=== PATIENT | male | born 1980 | race Caucasian/White ===

== ENCOUNTER 2016-07-22 09:37 | Emergency (ER) | payer OTHER, MEDICAID ==
[~2016-07-22] VITALS: Ht 190.5 cm; Wt 144.2 kg
[~2016-07-22 09:37] MED LIST: None at this time
[2016-07-22 09:41] VITALS: BP 160/84
[2016-07-22] MEDS ORDERED: HYDROcodone/APAP 5/325 TABLET ONE (10:25)
[2016-07-22] MEDS ORDERED: METHOCARBAMOL 750 MG TABLET ONE (10:25)
[2016-07-22] MEDS ORDERED: METHOCARBAMOL 750 MG TABLET PO ONE (10:30)
[2016-07-22] MEDS ORDERED: HYDROcodone/APAP 5/325 TABLET PO ONE (10:30)
== END 2016-07-22 11:30 | disposition home or self-care (01) ==
LOC: ED 10:23
DX: S13.4XXA Sprain of ligaments of cervical spine, initial encounter (principal); Z88.1 Allergy status to other antibiotic agents; Z88.8 Allergy status to other drugs, medicaments and biological substances; S39.012A Strain of muscle, fascia and tendon of lower back, initial encounter; V43.52XA Car driver injured in collision with other type car in traffic accident, initial encounter; Y93.89 Activity, other specified; Y99.8 Other external cause status; Y92.89 Other specified places as the place of occurrence of the external cause
CPT/HCPCS: 71020; 72050; 72072

== ENCOUNTER 2018-02-12 09:00 | Emergency (ER) | payer MEDICAID, OTHER ==
[~2018-02-12] VITALS: Ht 190.5 cm; Wt 164.8 kg
[2018-02-12 09:07] VITALS: BP 151/70
[2018-02-12] MEDS ORDERED: KETOROLAC 30 MG/1 ML IM ONE (09:30)
[2018-02-12] MEDS ORDERED: KETOROLAC 30 MG/1 ML ONE (09:31)
== END 2018-02-12 10:29 | disposition home or self-care (01) ==
LOC: ED 10:15
DX: S83.411A Sprain of medial collateral ligament of right knee, initial encounter (principal); X50.1XXA Overexertion from prolonged static or awkward postures, initial encounter; Y93.89 Activity, other specified; Y92.009 Unspecified place in unspecified non-institutional (private) residence as the place of occurrence of the external cause; Y99.8 Other external cause status
CPT/HCPCS: 73564; 96372; 99283; J1885

== ENCOUNTER 2018-04-24 21:36 | Emergency (ER) | payer MEDICAID ==
[~2018-04-24] VITALS: Ht 193 cm; Wt 168.3 kg
--- NOTE | 2018-04-24 22:03 | NUR ---
PT ARRIVED WITH C/O SOB, COUGH X 1.5 DAYS. PT STATED CHEST AND BACK PAIN WITH COUGHING, +N/V X 2 EPISODES YESTERDAY. MONITORS APPLIED, SIDERAILS UP X2,PROVIDED PT WITH WARM BLANKET, CALL LIGHT WITHIN REACH, FAMILY AT BEDSIDE. AWAITING ERP FOR EVAL AND ORDERS
--- NOTE | 2018-04-24 22:20 | NUR ---
PT TO XRAY
--- NOTE | 2018-04-24 22:37 | NUR ---
POCKET STITCHER AT BEDSIDE FOR LAB DRAW
[2018-04-24 22:44] LABS: BASOPHILS # (AUTO) 0.04 x10^3/uL (0-0.1); BASOPHILS % (AUTO) 1 % (0-1); EOSINOPHILS # (AUTO) 0.29 x10^3/uL (0-0.4); EOSINOPHILS % (AUTO) 5 % (1-7); LYMPHOCYTES # (AUTO) 1.86 x10^3/uL (1-3.4); LYMPHOCYTES % (AUTO) 29 % (22-44); MD NO; MEAN CORPUSCULAR HGB CONC 34.8 g/dL (33.2-36.2); MEAN CORPUSCULAR VOLUME 86.1 fL (81-97); MEAN PLATELET VOLUME 10.8 fL (7.4-10.4); MONOCYTES # (AUTO) 0.68 x10^3/uL (0.2-0.8); MONOCYTES % (AUTO) 10 % (2-9); NEUTROPHILS # (AUTO) 3.66 x10^3/uL (1.8-6.8); NEUTROPHILS % (AUTO) 56 % (42-75); PLATELET COUNT 121 x10^3/uL (130-400); RED BLOOD COUNT 5.27 x10^6/uL (4.38-5.82); RED CELL DISTRIBUTION WIDTH 13.3 % (9.4-14.8)
[2018-04-24 22:56] LABS: ALBUMIN 3.4 g/dL (3.4-5.0); ANION GAP 5 mmol/L (5-15); CALCIUM 8.3 mg/dL (8.5-10.1); CHLORIDE 109 mmol/L (98-107); CREATININE 0.93 mg/dL (0.7-1.3)
[2018-04-24 23:00] LABS: TROPONIN I < 0.015 ng/mL (0.000-0.045)
[2018-04-24 23:11] VITALS: BP 106/51
--- NOTE | 2018-04-24 23:11 | NUR ---
PT RESTING WITH EYES CLOSED, DENIES NEEDS, MONITORS IN PLACE, CALL LIGHT WITHIN REACH.
== END 2018-04-24 23:34 | disposition home or self-care (01) ==
LOC: ED 22:14
DX: J15.9 Unspecified bacterial pneumonia (principal); R07.89 Other chest pain
CPT/HCPCS: 36415; 71046; 80048; 82040; 84484; 85025; 93005; 99284